=== PATIENT | female | born 1975 | race Two or more races ===

== ENCOUNTER → 2025-05-09 | Emergency (ER) | payer OTHER ==
[~2025-05-09] VITALS: Ht 167.6 cm; Wt 93.9 kg
[~2025-05-09] MED LIST: ACETAMINOPHEN 500 MG GEL..CAP PO ONE; DEXAMETHASONE SODIUM PHOSPHATE 4 MG/ML VIAL IM ONE; DEXAMETHASONE SODIUM PHOSPHATE 4 MG/ML VIAL ONE; INDERAL XL80 MG PO; KETO10TA2 PO; KETOROLAC TROMETHAMINE 60 MG VIAL IM ONE; NORFLEX100MG PO; ORPHENADRINE CITRATE 30 MG/ML AMPUL IM ONE; ORPHENADRINE CITRATE 30 MG/ML AMPUL ONE; PEPCID AC20 MG PO; RELPAX20 MG PO
== END | disposition home or self-care (01) ==
LOC: ER 17:08
DX: S46.819A Strain of other muscles, fascia and tendons at shoulder and upper arm level, unspecified arm, initial encounter (principal); X58.XXXA Exposure to other specified factors, initial encounter; Y93.89 Activity, other specified; Y92.89 Other specified places as the place of occurrence of the external cause; Y99.9 Unspecified external cause status; M62.838 Other muscle spasm